=== PATIENT | female | born 1960 | race Two or more races ===

== ENCOUNTER 2016-09-12 10:16 | Emergency (ER) | payer BC ==
[2016-09-12] MEDS ORDERED: IOPAMIDOL 370 (76%) IV.SOLN 150 ML IV ONE (10:17)
[2016-09-12 11:26] LABS: SPECIFIC GRAVITY 1.025 (1.001-1.030); URINE BILIRUBIN NEGATIVE (NEGATIVE); URINE BLOOD 1+ (NEGATIVE); URINE GLUCOSE (UA) 1+ (NEGATIVE); URINE LEUKOCYTE ESTERASE NEGATIVE (NEGATIVE); URINE NITRITE NEGATIVE (NEGATIVE); URINE PROTEIN 1+ (NEGATIVE); URINE UROBILINOGEN NORMAL (0-1 mg/dl)
[2016-09-12 11:27] LABS: URINE APPEARANCE CLEAR; URINE COLOR YELLOW
[2016-09-12] MEDS ORDERED: KETOROLAC TROMETHAMINE 15 MG/ML VIAL ONE (11:38)
[2016-09-12] MEDS ORDERED: SODIUM CHLORIDE 0.9% 1,000 ML ONE (11:38)
[2016-09-12] MEDS ORDERED: ONDANSETRON 4 MG/2ML 2 ML VIAL ONE (11:38)
[2016-09-12 11:40] LABS: URINE BACTERIA 1+
[2016-09-12 11:42] LABS: URINE CASTS 5-7 HYALINE /lpf
[2016-09-12 11:45] LABS: BASO % 0.4 % (0.2-1.0); EOS # 0.1 (0.0-0.5); EOS % 1.3 % (0.9-2.9); HEMATOCRIT 42.3 % (37.0-47.0); HEMOGLOBIN 14.4 gm/l (12.0-16.0); LYMPH # 2.3 (1.0-4.8); MEAN CELL VOLUME 86.5 fl (81.0-99.0); MEAN CORPUSCULAR HEMOGLOBIN 29.4 pg (27.0-31.0); MEAN PLATELET VOLUME 12.5 fl (7.4-10.4); MONO # 0.4 (0.0-0.8); MONO % 7.8 % (4-12); NEUT % 42.5 % (43-75); PLATELET COUNT 176 K/mm3 (130-400); RED CELL DISTRIBUTION WIDTH 11.4 % (11.5-14.5)
[2016-09-12 12:15] LABS: ALB/GLOB RATIO 1.3 (>1.0); ALBUMIN 4.3 gm/dL (3.5-5.7); CALCIUM 9.2 mg/dL (8.6-10.3)
--- NOTE | 2016-09-12 13:32 | CT ---
Exam Type: ABD/PELVIS W/ CON Date and Time: 09/12/2016 1:01 PM Clinical information: Right lower quadrant pain. Comparison: None Procedure: Imaging device: [email or web address] Aquilion [address] scanner 1 mm axial images were obtained through the abdomen and pelvis. Stacked reconstructed 3, 4 and 5 mm images were photographed in the axial coronal and sagittal planes. No oral contrast was utilized for this examination. 125 ml of Isovue-370 was injected intravenously. Exam: with intravenous contrast. FINDINGS: Lung bases:The visualized lung bases appear to be appropriate with no mass, effusion or consolidation visualized. Liver: The liver appears to be of diffusely decreased attenuation when compared to the spleen. No focal mass or evidence of intrahepatic biliary dilatation is suggested. Spleen: The spleen is homogeneous and does not appear to be enlarged. Gallbladder: Normal without enlargement or evidence of adjacent inflammatory changes. Pancreas: Normal without enlargement or evidence of adjacent inflammatory changes. Adrenal glands: Normal without enlargement or evidence of adjacent inflammatory changes. Abdominal aorta: The aorta is of normal caliber and appears to be without significant atherosclerotic disease. Kidneys: The kidneys appear to be symmetric in size with no perinephric inflammatory changes are identified. No current findings of hydronephrosis are seen. Bowel structures: The visualized bowel is of normal caliber without evidence of dilatation or obstruction. No free fluid or mesenteric inflammatory changes are identified. Appendix: The appendix is well-visualized and appears to be of normal caliber. No periappendiceal inflammatory changes or CT findings of appendicitis are currently observed. Bladder: The bladder is of normal contour. No wall thickening or significant distention is observed. Hernia: No abdominal wall or inguinal hernia is visualized on this examination. Adenopathy: No significant enlarged adenopathy is visualized. Osseous structures: No discrete osseous abnormalities are identified. Pelvic structures: No discrete pelvic abnormalities are visualized in this examination. IMPRESSION: 1. A normal appearance of the appendix without current CT evidence to suggest appendicitis. 2. Findings most commonly associated with diffuse fatty infiltration of the liver.
== END 2016-09-12 14:28 | disposition home or self-care (01) ==
LOC: ED 10:16
DX: R10.31 Right lower quadrant pain (principal); R19.7 Diarrhea, unspecified; E11.9 Type 2 diabetes mellitus without complications; Z79.84 Long term (current) use of oral hypoglycemic drugs
CPT/HCPCS: 83690; 85025; 80053; 84484; 81001; 74177; 96375; 99284 ×2; 96374; 96361; 82962; J1885; J2405; J7030; Q9967